=== PATIENT | male | born 1980 | race African-American/Black ===

== ENCOUNTER 2017-05-18 12:07 | Emergency (ER) | payer SELFPAY ==
[~2017-05-18] VITALS: Ht 180.3 cm; Wt 80.0 kg
[2017-05-18] MEDS ORDERED: TETRACAINE 0.5% OPHTH DROPS 4ML OP ONE (13:45)
[2017-05-18] MEDS ORDERED: FLUORESCEIN SODIUM 1MG/STRIP OP ONE (13:45)
[2017-05-18] MEDS ORDERED: BALANCED SALT IRRIG SOLN 15ML IO ONE (13:45)
[2017-05-18 14:35] LABS: BASOPHILS % 1.1 % (0.0-2.0); EOSINOPHILS % 2.8 % (0.0-5.0); HEMATOCRIT. 40.4 % (42.0-52.0); HEMOGLOBIN. 13.7 g/dL (14.0-18.0); LYMPHOCYTES % 18.2 % (20.0-50.0); MEAN CORPUSCULAR HEMOGLOBIN 29.1 pg (28.0-32.0); MEAN CORPUSCULAR VOLUME 85.8 fL (80.0-94.0); MEAN PLATELET VOLUME 8.9 fl (7.4-10.4); MONOCYTES % 8.4 % (2.0-8.0); NEUTROPHILS % 69.5 % (40.0-76.0); PLATELET 205 x1000/uL (130-400); RED BLOOD CELL COUNT 4.71 mill/uL (4.7-6.1)
[2017-05-18 14:43] LABS: CHLORIDE 109 mEq/L (98-107)
[2017-05-18 14:48] LABS: CARBON DIOXIDE 26 mEq/L (21-32); ETHANOL BLOOD 142 mg/dL
[2017-05-18] MEDS ORDERED: LORAZEPAM 2MG/ML CPJ IV ONE (18:00)
[2017-05-18 19:51] LABS: *AMPHETAMINES SCREEN URINE NEGATIVE (NEGATIVE); *BARBITURATES SCREEN URINE NEGATIVE (NEGATIVE); *BENZODIAZEPINES SCREEN URINE NEGATIVE (NEGATIVE); *COCAINE SCREEN URINE NEGATIVE (NEGATIVE); CANNABINOID URINE SCREEN NEGATIVE (NEGATIVE); METHADONE URINE SCREEN NEGATIVE (NEGATIVE); OPIATES URINE SCREEN NEGATIVE (NEGATIVE); PHENCYCLIDINE URINE SCREEN PRESUMTIVE POSITIVE (NEGATIVE)
[2017-05-18 22:15] VITALS: BP 140/71
== END 2017-05-18 22:44 | disposition home or self-care (01) ==
LOC: ER 12:07
DX: F10.121 Alcohol abuse with intoxication delirium (principal); Y90.6 Blood alcohol level of 120-199 mg/100 ml; Z77.098 Contact with and (suspected) exposure to other hazardous, chiefly nonmedicinal, chemicals
CPT/HCPCS: 36415; 70450; 80053; 80305; 80307; 80329; 82962; 85025; 96374; 99285; G0482; J2060